=== PATIENT | male | born 1990 | race Caucasian/White ===

== ENCOUNTER 2025-05-29 22:51 | Emergency (ER) | payer OTHER, SELFPAY ==
[2025-05-29 22:52] VITALS: BP 154/84; PULSE 121; RESP 18; TEMP 37.2; O2SAT 100; BMI 23.5
[2025-05-29] MEDS: Lidocaine 2% Viscous15 ML UDC 15 ML PO (23:44)
[2025-05-29] MEDS: Ketorolac 30 MG/ML Syringe IM (23:44)
--- NOTE | 2025-05-29 23:57 | EX.ED.DYSGE1 ---
HPI History of Present Illness Chief Complaint: Cough Narrative Narrative: Patient was seen and examined after presenting to ED for cough body aches chills he was at [facility] he started having the symptoms started also describing a sore throat as well. PFSH PFSH Home Medications ?Medication ?Instructions ?Recorded ?Last Taken ?Type ondansetron 4 mg disintegrating 4 mg PO Q8H PRN PRN Nausea #30 tabs 05/30/25 Unknown Rx tablet Allergy/AdvReac Type Severity Reaction Status Date / Time No Known Allergies Allergy Verified 05/29/25 22:52 Social History Smoking Status: Light Smoker (<10/day) ROS ROS ED ROS Narrative Pertinent Positives: Myalgias sore throat fevers chills cough nausea Pertinent Negatives: Chest pain vomiting diarrhea urinary symptoms shortness of breath The remainder of review of systems negative unless otherwise stated in the HPI above. Systems reviewed including constitutional, psychiatric, cardiovascular, respiratory, integument, HENT, gastrointestinal. EXAM Physical Exam Narrative Exam Narrative: Patient is afebrile here hemodynamically stable does not appear toxic or in distress he has normal range of motion of his head and neck. Just mildly tachycardic. Lungs are clear moves all of his extremities appropriately oropharynx is clear no erythema no exudates no tonsillar enlargement. He has intact and equal MSPs in his extremities. Abdomen is soft nontender nondistended. Const Vital Signs: 05/29/25 22:52 05/29/25 23:49 Temperature 98.9 F Temperature Source Oral Pulse Rate 121 H Respiratory Rate 18 Respiratory Effort Normal Respiratory Depth Normal Respiratory Pattern Normal Blood Pressure 154/84 H Blood Pressure Mean 107 Pulse Ox 100 Oxygen Delivery Method Room Air MDM MDM MDM Narrative Medical decision making narrative: Nursing notes, triage notes, available previous documentation, and vital signs were reviewed. Any discrepancies noted were addressed. Differential Diagnoses: Viral syndrome low suspicion for meningitis or pneumonia Interventions: Viscous lidocaine Zofran Toradol Tylenol Oral fluids Labs Reviewed: Not clinically indicated Imaging Reviewed: Personally reviewed and interpreted by me: Chest x-ray I do not see a pneumonia edema or widened mediastinum or pneumothoraces Previous Documentation Reviewed: None available or applicable at this time. ED Course: Patient presenting with symptoms that are more consistent with a viral process patient will get a chest x-ray make sure he does not have a pneumonia however he will be treated with supportive measures he is drinking water as well in the room. I suspect the patient will be stable for discharge I will provide him with prescription for Zofran he can take Tylenol and ibuprofen at home as well. 05/30/2025 at 0027: Patient up and ambulatory appears well chest x-ray was pretty unremarkable I believe he is stable for discharge home return precautions follow-up recommendations provided prescription for Zofran provided. This note was made utilizing voice recognition software. All attempts were made to correct spelling or other errors prior to note completion. However, due to the fast-paced nature of emergency medicine, some errors may still be present. Discharge Plan Triage Chief Complaint: Cough ED Provider: Bessie Appiah Dx/Rx/DC Orders Clinical Impression: Acute viral syndrome, Myalgia, Nausea, Cough Instructions: ED Viral Syndrome (Adult) Prescriptions: New ondansetron 4 mg tablet,disintegrating 4 mg PO Q8H PRN PRN (Reason: Nausea) Qty: 30 0RF Primary Care Provider: Care Physician,No Primary Referrals: Care Physician,No Primary [Primary Care Provider, Medical] Activity Restrictions/Additional Instructions: Follow-up with your doctor take Tylenol and ibuprofen for your symptoms I am sending a prescription for nausea medicine for you to make sure you stay well-hydrated please return if getting worse Print Language: Citizen Of [place] Disposition Disposition: Home, Self Care
--- NOTE | 2025-05-29 23:59 | RAD_ITS ---
PROCEDURE: CHEST PA AND LATERAL 05/29/2025 REASON FOR EXAM: COUGH TECHNIQUE: Procedure Code: RADCXR Modality: DX Procedure: CHEST PA AND LATERAL COMPARISON: None available. FINDINGS: Hardware: None Heart: The heart size is normal. Mediastinum: The mediastinal contour is unremarkable. Lungs: The lungs are clear. No pneumothorax or pleural effusion. Bones: The bones are unremarkable. RAD/Chest PA and Lateral IMPRESSION: NO ACUTE FINDINGS. Reading [facility]
[2025-05-30 00:35] VITALS: BP 154/84; PULSE 121; RESP 18; TEMP 37.2; O2SAT 100
== END 2025-05-30 00:45 | disposition home or self-care (01) ==
PROVIDERS: Emergency Provider Specialist/Technologist Athletic Trainer; Visit Provider Specialist/Technologist Athletic Trainer
DX: B34.9 Viral infection, unspecified (principal); M79.10 Myalgia, unspecified site; R11.0 Nausea; R05.9 Cough, unspecified; F17.200 Nicotine dependence, unspecified, uncomplicated
CPT/HCPCS: 71046; 96372; 99283; A4216